=== PATIENT | male | born 1995 | race Caucasian/White ===

== ENCOUNTER 2018-06-21 20:33 | Emergency (ER) | payer OTHER, SELFPAY ==
[2018-06-21 20:35] VITALS: BP 135/83; PULSE 58; PULSE 60; RESP 14; TEMP 36.7; O2SAT 98; BMI 25.9
[2018-06-21] MEDS: Acetaminophen 500 MG Tablet 1000 MG PO (21:31)
--- NOTE | 2018-06-21 22:30 | ED.DCSUM_ITS ---
- ER Visit Summary Date of Service: 06/21/18 Chief Complaint: Laceration History of Present Illness: The patient is a [address] Yamileth King. He reports that he was at work and stood up at the back of his head on the corner of a wooden shelf. Did not have a loss of consciousness. However, he reports that he feels out of it. He complains of throbbing pain to the back of his head distress in severity. He denies any neck or back pain. He did not fall when this occurred. He denies any other injuries or complaints. Tetanus is up-to-date. Physical Examination: Vitals: Stable. Afebrile. Head: 6 cm laceration to the right parietal area of his scalp. No active bleeding. Neck: No vertebral tenderness. Full ROM without difficulty. Cleared by NEXUS criteria. Back: No vertebral tenderness. General: A&O x 3. NAD. Cardiovascular exam: Regular rate and rhythm, no murmur, rub or gallop. Respiratory exam: Chest nontender. No crepitus. Clear to auscultation bilaterally. No wheezes or stridor. Abdominal exam: Soft, nontender, nondistended, normal bowel sounds. No pain in RUQ or LUQ specifically. No peritoneal signs. Extremity: Atraumatic. No pain with range of motion. Emergency Department Course and Treatment: Patient was treated with Tylenol. He had his wound anesthetized and repaired. He tolerated it well. Treatment Plan: Patient be discharged instructions follow-up with [facility] in 10-14 days for staple removal. Return to the emergency department for any worsening symptoms. Disposition: To home in improved and stable condition. Impression: 1. Scalp laceration, 6 cm, repaired. 2. Concussion. Procedure note: Wound was cleansed with chlorhexidine soap. Anesthetized with 1% lidocaine without epinephrine. Copiously irrigated with normal saline. Wound was explored there is no foreign material present. It was closed with 9 la. The patient tolerated it well. This note was generated with [employer] dictation software. It may contain incorrect words, spelling, and punctuation that were not noted in review of the chart prior to signing ED Disposition - Plan for ED Patient: Disposition: Home or Assisted Living Chief Complaint: Fall Instructions: ED Laceration Scalp Stitch Or Stap Referrals: [facility] [GROUP OF PHYSICIANS] - 10-14 Days suture removal
[2018-06-21 22:52] VITALS: BP 131/71; PULSE 72; RESP 14; O2SAT 99
== END 2018-06-21 22:54 | disposition home or self-care (01) ==
PROVIDERS: Emergency Provider Emergency Medicine; Family Provider Pediatrics; PCP Pediatrics
DX: S01.01XA Laceration without foreign body of scalp, initial encounter (principal); S06.0X0A Concussion without loss of consciousness, initial encounter; W22.09XA Striking against other stationary object, initial encounter; Y93.9 Activity, unspecified; Y92.89 Other specified places as the place of occurrence of the external cause; Y99.0 Civilian activity done for income or pay
CPT/HCPCS: 12002; 93005; 99285; J7030